=== PATIENT | female | born 1970 | race Caucasian/White ===

== ENCOUNTER → 2022-10-12 10:11 | Outpatient (CLI) | payer OTHER, SELFPAY ==
--- NOTE | ~2022-10-12 | MR_ITS ---
MRI of the left ankle Clinical history: Pain Technique: Coronal proton-density and proton-density fat-sat images, axial proton-density and proton- density fat-sat images, and sagittal proton-density and proton-density fat-sat images were acquired. Findings: There is marked thickening and increased signal of the anterior, inferior distal tibiofibu lar ligament. Posterior distal tibiofibular ligament appears intact. Anterior and posterior talofibul ar ligaments, and calcaneofibular ligament are intact. There is hyperintense signal the calcaneofibul ar ligament. Deltoid ligament is intact. Medial flexor tendons, peroneal tendons, anterior extensor tendons, and Achilles tendon are intact. There is apparent vertically oriented, nondisplaced posterior malleolus fracture, with linear T2 hyp erintensity and T1 hypointensity. There are moderate degenerative changes at the first and second tar sometatarsal joints. Plantar fascia intact. Normal signal preserved in the sinus Tarsi. There is subcutaneous soft tissue edema extending to the dorsum of the foot, and about the ankle, nonspecific. Impression: Apparent nondisplaced posterior malleolus fracture. Correlate with any history of trauma. Marked thickening and increased signal of the anterior, inferior distal tibiofibular ligament. This p robably represents chronic posttraumatic change, given lack of surrounding soft tissue edema, however acute high ankle sprain is a potential consideration. Nonspecific subcutaneous soft tissue edema. Reviewed, dictated and finalized at [facility]. Impression: Apparent nondisplaced posterior malleolus fracture. Correlate with any history of trauma. Marked thickening and increased signal of the anterior, inferior distal tibiofi bular ligament. This probably represents chronic posttraumatic change, given la ck of surrounding soft tissue edema, however acute high ankle sprain is a poten tial consideration. Nonspecific subcutaneous soft tissue edema.
== END ==
PROVIDERS: PCP Internal Medicine; Visit Provider Physician Assistant
DX: S82.892A Other fracture of left lower leg, initial encounter for closed fracture (principal); X58.XXXA Exposure to other specified factors, initial encounter
CPT/HCPCS: 73721